=== PATIENT | female | born 1965 | race Caucasian/White ===

== ENCOUNTER → 2017-08-24 12:05 | Outpatient (CLI) | payer MEDICARE, SELFPAY ==
[2017-08-24 12:35] LABS: ALB/GLOB Ratio 1.1 RATIO (0.9-2.4); AST(SGOT) 13 U/L (15-37); Alanine Aminotransfer ALT/SGPT 36 U/L (13-56); Albumin, Serum 3.5 g/dL (3.2-5.0); Alkaline Phosphatase 101 U/L (45-117); Anion Gap 8 (5-15); BUN 11 mg/dL (7-18); BUN/Creat Ratio 10.9 RATIO (10-20); Calcium,Total 9.2 mg/dL (8.5-10.1); Chloride 110 mmol/L (98-107); Creatinine, Serum 1.01 mg/dL (0.55-1.02); EST Glomerular Filtration Rate 61 mL/min (>60); Est Glom Filt Rate - Afr Amer 74 mL/min (>60); Globulin 3.3 g/dL (2.2-4.2); Glucose 109 mg/dL (74-106); Potassium 4.8 mmol/L (3.5-5.1); Protein, Total 6.8 g/dL (6.4-8.2); Sodium Level 140 mmol/L (136-145)
== END ==
PROVIDERS: Visit Provider Registered Nurse
DX: Z79.899 Other long term (current) drug therapy (principal)
CPT/HCPCS: 80053; 80178; 84443

== ENCOUNTER → 2017-10-29 10:19 | Outpatient (CLI) | payer MEDICARE, SELFPAY | PROVIDERS: Visit Provider Registered Nurse | DX: F31.31 Bipolar disorder, current episode depressed, mild (principal); Z79.899 Other long term (current) drug therapy | CPT/HCPCS: 36415; 80178 ==

== ENCOUNTER → 2017-12-19 12:58 | Outpatient (CLI) | payer MEDICARE, SELFPAY ==
--- NOTE | 2017-12-19 13:00 | RAD_ITS ---
STUDY: SWALLOWING STUDY REASON FOR EXAM: Female, 52 years old. Dysphagia. TECHNIQUE: The examination was performed with Speech Pathology in attendance. Under fluoroscopic observation, the patient ingested thin barium, thick barium, barium pudding, and barium coated cracker. FLUOROSCOPY TIME: 0:59 minutes/seconds. 912 spot images were obtained. RADIOLOGIST INVOLVEMENT: Radiologist was present and providing direct supervision. COMPARISON: None. FINDINGS: The following was observed during swallowing of the various mixtures of barium: Thin Barium: There was no evidence of aspiration or laryngeal penetration. Barium Pudding: There was no evidence of aspiration or laryngeal penetration. Barium Coated Cracker: There was no evidence of aspiration or laryngeal penetration. RAD/Swallowing Function w/Video IMPRESSION: Normal tailored barium swallow study. No evidence of increased risk for aspiration. The swallow study findings were discussed with the patient by the speech pathologist at the conclusion of the examination. Please see speech pathology report for more information and recommendations. Electronically Signed: Hadley Duff MD at 13:47 EDT Tel [phone], Service support ,
--- NOTE | 2017-12-19 13:30 | SP.MBSS_ITS ---
PRIMARY / SECONDARY DIAGNOSIS: dysphagia (R13.10) REFERRING PHYSICIAN: Dr. Adelso Devlin MD CURRENT DIET: regular textures, thin liquids DENTITION: WFL MENTAL STATUS: WNL RESPIRATORY STATUS: O2 via room air PREVIOUS MODIFIED BARIUM SWALLOW STUDY: REASON FOR REFERRAL: Patient is a 52 year old female referred for a modified barium swallow (MBS) study to objectively assess the Patients oropharyngeal swallow function under fluoroscopy secondary to reported bilateral thyroid nodules in addition to globus sensation post deglutition. 08/10/2017 thyroid ultrasound revealed 3 mm right lobe nodule left lobe, 2 small 4-7 mm nodules in the left side of the isthmus is a 1.6 x 0.9 x 1.37 m nodule. MEDICAL HISTORY: Multiple thyroid nodules, esophageal dysphagia, gastroesophageal reflux disease , anxiety, depression, sleep apnea, hypertension, status post section, hysterectomy, laparoscopic cholecystectomy, parathyroidectomy, terminal carman history of tobacco abuse (pack per day for 30 years) STUDY FINDINGS: Patient participated in a Modified Barium Swallow (MBS) study on 12/19/2017. Dr. Duff was the radiologist present for this evaluation. This study was recorded in the lateral view and images were sent to PACs for storage. The following consistencies were presented to this patient for analysis of oropharyngeal swallow function: thin liquids, pudding, and a regular textured, Suki Doone cookie. Results of the MBS are as follows: PENETRATION / ASPIRATION SCALE (RIVERA): 1 = does not enter airway 2 = enters airway/above vocal folds/ejected 3 = enters airway/above vocal folds/not ejected 4 = enters airway/contacts vocal folds/ejected 5 = enters airway/contacts vocal folds/not ejected 6 = enters airway/below vocal folds/ejected 7 = enters airway/below vocal folds/not ejected despite effort 8 = enters airway/below vocal folds/no effort PENETRATION / ASPIRATION SCALE (SCORE): Thin liquids via cup (single sip): 1 Thin liquids via cup (single sip): 2 Thin liquids via cup (single sip): 1 Thin liquids via cup (single sip): 1 Thin liquids via straw (single sip): 1 Thin liquids via straw (sequential swallows): 1 Pudding via spoon: 1 Regular textured cookie: 1 IMPRESSION: DIAGNOSIS: mild oropharyngeal dysphagia (R13.12) ORAL PHASE CHARACTERIZED BY: LABIAL SEAL: no labial escape TONGUE CONTROL DURING BOLUS MANIPULATION: cohesive bolus between tongue to palatal seal BOLUS PREPARATION / MASTICATION: timely and efficient chewing and mashing BOLUS TRANSPORT / LINGUAL MOTION: brisk tongue motion ORAL RESIDUE: complete oral clearance PHARYNGEAL PHASE CHARACTERIZED BY: INITIATION OF PHARYNGEAL SWALLOW: bolus head at posterior angle of ramus at first hyoid excursion SOFT PALATE ELEVATION: no bolus between soft palate and pharyngeal wall LARYNGEAL ELEVATION: partial superior movement of thyroid cartilage/partial approximation of arytenoids cartilage to epiglottic petiole ANTERIOR HYOID EXCURSION: complete anterior movement EPIGLOTTIC MOVEMENT: complete epiglottic inversion LARYNGEAL VESTIBULE CLOSURE AT HEIGHT OF SWALLOW: complete laryngeal vestibule closure with no air/contrast in laryngeal vestibule PHARYNGEAL STRIPPING WAVE: pharyngeal stripping wave present / complete PHARYNGOESOPHAGEAL SEGMENT OPENING: complete distension and complete duration with no obstruction of flow TONGUE BASE RETRACTION: trace column of contrast between tongue base and posterior pharyngeal wall PHARYNGEAL RESIDUE: trace residue within or on pharyngeal structures ESOPHAGEAL PHASE CHARACTERIZED BY: ESOPHAGEAL BOLUS CLEARANCE IN THE UPRIGHT POSITION: complete clearance; esophageal coating DIET TEXTURE RECOMMENDATIONS: Will recommend a regular textured, thin liquid diet. COMPENSATORY STRATEGIES RECOMMENDED: Reduced bolus volume, seated upright at 90 degrees during PO intake INTERPRETATION OF RESULTS: The Patient presents with mastication and deglutition abilities found to be grossly within functional limits. No aspiration appreciated throughout consistencies trialed with slight transient penetration during thin liquid via cup on one occasion; results within normal limitations. RECOMMENDATIONS: Patient able to comprehend and express recommended intake precautions detailed above with sufficient detail to suggest high likelihood of compliance. Provided brief overview of signs and symptoms of aspiration, with recommendations for the Patient to further discuss symptoms with PCP. No further skilled speech- language services warranted at this time targeting dysphagia. ADDITIONAL COMMENTS/RECOMMENDATIONS: Results and recommendations were discussed with the Patient immediately following MBS completion, with the Patient verbalizing understanding and agreement with all recommendations and education provided. IMAGE COUNT: 912 G-CODES: SWALLOWING G8996 Current Status: SWALLOWING G8997 Goal Status: SWALLOWING G8998 Discharge Status:
== END ==
PROVIDERS: Family Provider Family Medicine; PCP Family Medicine; Visit Provider Surgery
DX: R13.10 Dysphagia, unspecified (principal)
CPT/HCPCS: 74230; 92611; G8996; G8997; G8998

== ENCOUNTER 2018-02-20 14:36 | Emergency (ER) | payer MEDICARE, SELFPAY ==
[2018-02-20 14:37] VITALS: BP 169/78; PULSE 91; RESP 24; TEMP 35.9; O2SAT 97; BMI 47.2
--- NOTE | 2018-02-20 15:07 | ED.VISSUMM ---
- ER Visit Summary Date of Service: 02/20/18 Chief Complaint: Short of breath, leg swelling History of Present Illness: The patient is a 52 F who presents with shortness of breath on exertion for the past 1 week. She noted swelling to her legs left more so than right over the past 4 days. She does report skin discoloration over the backs of her legs. She states they feel somewhat numb. She denies pain. She does not have chest pain. Patient is not a smoker but does take estrogen supplements. She denies personal or family history of blood clots. Physical Examination: Blood pressure is 169/78, temperature 96.7, heart rate 91, respiratory rate 24, pulse ox 97% on room air. Patient is an obese female sitting upright in bed. She is speaking full sentences. Head and neck examination is unremarkable. Heart is regular rate and rhythm. Lung sounds are clear. Abdomen is soft and nontender. Lower extremity examination reveals 2+ edema to the the lower legs. She has mild skin mottling on her calf right more so than left. She has mild erythema to the lower portion of her left leg. She has strong distal pulses. Legs are warm to the touch. Test Results: EKG is sinus at 76 with no sign of acute ischemia. Portable chest x-ray shows scattered calcific granulomas. CBC is normal. Chemistry studies reveal BUN of 19 and a creatinine 1.57. I do not have any prior values to compare to. Troponin is negative. BNP is normal. D-dimer 0.59. Venous ultrasound of the legs reveals no evidence of DVT. CT of the chest is normal. Emergency Department Course and Treatment: Patient did receive IV fluids secondary to her elevation in creatinine and requiring CTA of the chest. On repeat evaluation patient has been sitting with her legs elevated. On exam her legs are normal in coloration. I encouraged her to use compression socks or wraps when she is going to be on her feet and try to elevate her legs. She is to follow with her primary care physician. Treatment Plan: [] Disposition: Discharge Impression: Dyspnea, uncertain etiology This note was generated with [employer] software. It may contain incorrect words, spelling, and punctuation that were not noted in review of the chart prior to signing ED Disposition - Plan for ED Patient: Chief Complaint: Shortness of Breath Referrals: Sharon Wall [Primary Care Provider] -
[2018-02-20 15:21] VITALS: O2SAT 96
[2018-02-20] MEDS: 0.9% Normal Saline 1,000 ML 150 ML IV (15:23)
[2018-02-20 15:36] LABS: Absolute Lymphocyte Count 2.55 X10^3/ul (0.83-4.51); Absolute Neutrophil Count 3.4 X10^3/uL (2.0-7.7); Basophil# 0.04 X10^3/uL; Basophil% 0.6 % (0-1); Eosinophil# 0.21 X10^3/uL; Eosinophils% 3.1 % (0-5); Hemoglobin 14.1 g/dl (12.0-15.0); Lymphocyte # 2.55 X10^3/ul (4.0); Lymphocyte % 37.5 % (19-41); Mean Corpuscular Hgb 27.4 pg (27.0-32.0); Mean Corpuscular Volume 85.4 fL (81-99); Mean Platelet Vol. 10.7 fl (6.2-12.0); Monocyte% 8.8 % (0-10); Neutrophil # 3.38 X10^3/uL (2.7-7.7); Neutrophil % 49.7 % (47-70); Platelet Count 235 K/mm3 (150-450); RBC Distribution Width CV 13.7 % (11.6-14.6); RBC Distribution Width SD 42.6 fl (35.1-43.9); Red Blood Count 5.15 M/mm3 (4.2-5.4); White Blood Count 6.8 K/mm3 (4.4-11.0)
[2018-02-20 15:44] LABS: Anion Gap 10 (5-15); BUN 19 mg/dL (7-18); BUN/Creat Ratio 12.1 RATIO (10-20); Calcium,Total 9.6 mg/dL (8.5-10.1); Chloride 110 mmol/L (98-107); Creatinine, Serum 1.57 mg/dL (0.55-1.02); EST Glomerular Filtration Rate 37 mL/min (>60); Est Glom Filt Rate - Afr Amer 44 mL/min (>60); Estimated Creatinine Clearance 33.15 ml/min; Glucose 98 mg/dL (74-106); Potassium 4.4 mmol/L (3.5-5.1); Sodium Level 141 mmol/L (136-145)
[2018-02-20 15:48] LABS: POSITIVE COUNT NO; POSITIVE DIFFERENTIAL NO; POSITIVE MORPHOLOGY NO
[2018-02-20 16:01] LABS: International Normalized Ratio 0.9; Prothrombin Time (Protime)PT. 12.6 SECONDS (11.7-14.9)
[2018-02-20 16:02] LABS: Partial Thromboplast Time 30.6 Seconds (24.1-36.2)
[2018-02-20 16:27] LABS: D-Dimer Quantitative (DVT/PE) 0.59 FEU/ug/m (0.27-0.49)
[2018-02-20 16:53] VITALS: BP 153/71; PULSE 68; RESP 15; O2SAT 99
[2018-02-20 17:49] LABS: BNP,B-Type NATRIURETIC PEPTIDE 10.4 pg/mL (0-100)
--- NOTE | 2018-02-20 18:14 | ED.DEP ---
ED Disposition - Plan for ED Patient: Disposition: Home or Assisted Living Chief Complaint: Shortness of Breath Instructions: ED Dyspnea Shortness of Breath, ED Leg Swelling Bilateral Referrals: Sharon Wall [Primary Care Provider] - 1 Week
[2018-02-20 18:19] VITALS: BP 141/76; PULSE 65; RESP 17; O2SAT 97
== END 2018-02-20 18:19 | disposition home or self-care (01) ==
PROVIDERS: Emergency Provider Emergency Medicine; Family Provider Family Medicine; PCP Family Medicine
DX: R06.00 Dyspnea, unspecified (principal); E66.9 Obesity, unspecified; K21.9 Gastro-esophageal reflux disease without esophagitis; I10 Essential (primary) hypertension; F41.9 Anxiety disorder, unspecified; F32.9 Major depressive disorder, single episode, unspecified; Z79.899 Other long term (current) drug therapy
CPT/HCPCS: 71045; 71275; 80048; 83880; 84484; 85025; 85379; 85610; 85730; 93005; 93970; 96360; 96361; 99285; J7030; J7040; Q9967; A4216

== ENCOUNTER 2018-09-24 14:24 | Emergency (ER) | payer MEDICARE, SELFPAY ==
[2018-09-24 14:25] VITALS: BP 170/130; PULSE 106; RESP 20; TEMP 36.3; O2SAT 98; BMI 51.2
--- NOTE | 2018-09-24 14:47 | CT_ITS ---
STUDY: CT ABDOMEN AND PELVIS WITH CONTRAST REASON FOR EXAM: Female, 53 years old. Right lower quadrant pain radiating to the right flank RADIATION DOSAGE (If Supplied By Facility): CTDIvol = ( 17.07 ) mGy, DLP = ( 2075.09 ) mGycm TECHNIQUE: Transaxial images were obtained from the dome of the diaphragm to the symphysis pubis without oral contrast. 100cc IV Isovue 300 was administered. Sagittal and coronal images were reconstructed. Individualized dose optimization techniques were used for this CT. COMPARISON: None. FINDINGS: The visualized lung bases are unremarkable. The visualized portions of the heart are within normal limits. There is decreased attenuation of the liver consistent with steatosis. There are surgical clips in the gallbladder fossa consistent with a prior cholecystectomy. Normal spleen. Normal pancreas. Normal bilateral adrenal glands. Under rotation and ascension of the right kidney (normal variant). Normal left kidney. Normal visualized stomach. Normal small intestine. Normal colon. The appendix is visualized and appears normal. Normal abdominal aorta. Normal inferior vena cava. Normal retroperitoneum. Normal urinary bladder. There is absence of the uterus consistent with a prior hysterectomy. Normal abdominal wall. There are diffuse degenerative changes of the visualized lumbar spine. CT/Abdomen/Pelvis W IV Cont ONLY IMPRESSION: 1. Normal CT appearance of the appendix. 2. No hydronephrosis or urinary tract calcifications. 3. Hepatic steatosis. Cholecystectomy. Electronically Signed: Kyel Brothers MD at 16:39 EDT , Service support ,
--- NOTE | 2018-09-24 14:51 | ED.DCSUM_ITS ---
History of Present Illness Chief Complaint: Abd Pain Informant: Patient Onset: Weeks - 1 Context: Gradual Onset Timing: Continuous Quality: ache Location: R abd Current Severity: Moderate Maximum Severity: Moderate Worsened by: moving, lying on R side Relieved by: remaining still Associated Symptoms: nausea, diarrhea, urinary frequency, subj fevers Narrative: Patient states the pain started in her right abdomen, then moved around to her right low back, is worse now with movement and lying on that side, and she states the abdominal discomfort is gone. She has had gold slimy diarrhea without blood or melena. - Past Medical History (1) Bipolar 1 disorder Status: Chronic (2) Esophageal dysphagia Status: Chronic (3) Multiple thyroid nodules Status: Chronic Past Medical History - Allergies and Home Meds Allergies/Adverse Reactions: Allergies nitrofurantoin [From Macrodantin] Allergy (Mild, Verified 09/24/18 14:28) rash sulfamethoxazole [From Septra] Allergy (Mild, Verified 09/24/18 14:28) rash trimethoprim [From Septra] Allergy (Mild, Verified 09/24/18 14:28) rash Primary Care Physician: Sharon Wall [Primary Care Provider] - Surgical History: cholecystectomy, - - Lives: Spouse/ Significant Other Smoking Status: Current every day smoker Review of Systems General: Reports: Fever, Subjective. Denies: Chills, Sweats Eyes: Denies: Visual changes - bilaterally, Diplopia ENT: Denies: Rhinorrhea, Sore throat Cardiovascular: Denies: Chest pain, Palpitations Respiratory: Denies: Dyspnea, Cough, Dyspnea on exertion Gastrointestinal: Reports: Abdominal pain, Nausea, Diarrhea. Denies: Vomiting, Melena, Hematochezia Genitourinary: Reports: Frequency. Denies: Dysuria, Hematuria Musculoskeletal: Reports: Back pain Skin: Denies: Rash, Wounds Neurological: Denies: Headache, Weakness, Numbness Physical Exam Vital Signs/Narrative: Vital Signs Temp Pulse Resp BP Pulse Ox 09/24/18 14:25 97.4 F L 106 H 20 H 170/130 H 98 Inital Vital Signs reviewed: Yes General: Well nourished, Well developed, Obese, No Acute Distress Head: Normocephalic, Atraumatic Eyes: Perrl, EOMI ENT: Moist mucous membranes, No rhinorrhea Neck: Supple, Nontender Cardiovascular: Regular rate, Regular rhythm, No murmurs Respiratory: No distress, CTA bilaterally, Chest nontender Abdomen: Soft, Nondistended, Normal bowel sounds, Tender - R mid abd > RLQ and RUQ. otherwise, nontender.. Negative for: Guarding, Rebound tenderness, Castorena's sign Back: Normal Inspection. Negative for: Nontender - +tender to superficial palpation right upper lumbar paraspinal area. no rash., CVA tenderness, Spinal tenderness Extremities: Nontender, No edema Skin: Normal color, No rash, No Trauma Neurological: Alert, Oriented x3, Cranial nerves II-XII grossly intact, Normal Strength, Normal Sensation Psychological: Normal affect, Normal Mood Diagnostic/Tx/Re-eval Impressions Abdomen/Pelvis CT 09/24/18 14:47 IMPRESSION: 1. Normal CT appearance of the appendix. 2. No hydronephrosis or urinary tract calcifications. 3. Hepatic steatosis. Cholecystectomy. Electronically Signed: Kyle Brothers MD at 16:39 EDT , Service support , 09/24/18 14:47 Abdomen/Pelvis W IV Cont ONLY [CT] Stat Laboratory Results 09/24/18 09/24/18 09/24/18 14:37 15:07 15:07 WBC 8.4 RBC 5.14 Hgb 14.0 Hct 41.5 MCV 80.7 L MCH 27.2 MCHC 33.7 RDW 13.7 RDW Differential 39.1 Plt Count 189 MPV 11.1 Immature Gran % (Auto) 0.500 Neut % (Auto) 67.2 Lymph % (Auto) 24.9 [place] % (Auto) 6.5 Eos % (Auto) 0.7 Baso % (Auto) 0.2 Absolute Neuts (auto) 5.6 Absolute Lymphs (auto) 2.08 Total Counted Not Reportable Sodium 142 Potassium 3.8 Chloride 108 H Carbon Dioxide 27.0 Anion Gap 7 BUN 11 Creatinine 1.04 H Estim Creat Clear Calc 49.48 Est GFR (MDRD) Af Amer 71 Est GFR (MDRD) Non-Af 59 L BUN/Creatinine Ratio 10.6 Glucose 91 Calcium 9.2 Total Bilirubin 0.50 AST 34 ALT 66 H Alkaline Phosphatase 111 Total Protein 7.3 Albumin 3.8 Globulin 3.5 Albumin/Globulin Ratio 1.1 Lipase 109 Urine Color Yellow Urine Clarity Clear Urine pH 7.0 Ur Specific [place] 1.005 Urine Protein Negative Urine Glucose (UA) Normal Urine Ketones Negative Urine Occult Blood Negative Urine Nitrite Negative Urine Bilirubin Negative Urine Urobilinogen Normal Ur Leukocyte Esterase Negative Urine RBC 0 SEEN Urine WBC 0 SEEN Ur Squamous Epith Cells 0-5 SEEN Urine Bacteria 0 SEEN Urine Mucus 0 SEEN - Medical Decision Making Labs and CT abdomen/pelvis showed no acute abnormalities. Urinalysis unremarkable. She was treated with Toradol and morphine, as well as Zofran and IV fluids. Suspect GI etiology of her symptoms. Will give her a prescription for Bentyl to use as needed for discomfort, and if the diarrhea persists she should follow-up with her doctor, she has been on no antibiotics or had recent travel or eating any uncooked meats to suggest this is bacterial in etiology. She has had no hematochezia. She is comfortable with this plan. ED Disposition - Plan for ED Patient: Disposition: Home or Assisted Living Diagnosis: Right sided abdominal pain, Acute diarrhea Instructions: ED Abdominal Pain Unkn Cause, ED Diarrhea Viral Prescriptions: Dicyclomine HCl [Bentyl] 20 mg PO Q6H PRN #20 cap PRN Reason: abdominal pain Referrals: Sharon Wall [Primary Care Provider] - 3-5 Days if not improving
[2018-09-24 15:08] LABS: Bacteria 0 SEEN /hpf (None Seen); Mucous, Urine 0 SEEN /hpf (<or=2+); Red Blood Cells-Urine 0 SEEN /hpf (0-5); White Blood Cells 0 SEEN /hpf (0-5)
[2018-09-24] MEDS: Ketorolac 30 MG/ML Syringe 15 MG IV (15:09)
[2018-09-24] MEDS: 0.9% Normal Saline 1,000 ML 1000 ML IV (15:09)
[2018-09-24] MEDS: Ondansetron 4 MG/2 ML Vial IV (15:09)
[2018-09-24] MEDS: Morphine 4 MG/ML Syringe IV (15:09)
[2018-09-24 15:10] LABS: Color, Urine Yellow (Yellow); Glucose, Dipstick Normal (Normal); Ketone-Dipstick Negative (Negative); Leukocyte Esterase-Dipstick Negative /ul (Negative); Nitrite-Dipstick Negative (Negative); Occult Blood-Urine Negative /ul (Negative); Protein-Dipstick Negative (Negative); Specific Gravity, Urine 1.005 (1.002-1.030); Urine Bilirubin Dipstick Negative (Negative); Urine Clarity Clear (Clear); Urine Urobilinogen Normal (Normal)
[2018-09-24 15:15] LABS: Absolute Lymphocyte Count 2.08 X10^3/ul (0.83-4.51); Absolute Neutrophil Count 5.6 X10^3/uL (2.0-7.7); Basophil# 0.02 X10^3/uL; Basophil% 0.2 % (0-1); Eosinophil# 0.06 X10^3/uL; Eosinophils% 0.7 % (0-5); Hematocrit 41.5 % (37-47); Lymphocyte # 2.08 X10^3/ul (4.0); Lymphocyte % 24.9 % (19-41); Mean Corp Hgb Conc 33.7 g/gl (32-36); Mean Corpuscular Hgb 27.2 pg (27.0-32.0); Mean Corpuscular Volume 80.7 fL (81-99); Mean Platelet Vol. 11.1 fl (6.2-12.0); Monocyte# 0.54 X10^3/uL; Monocyte% 6.5 % (0-10); Neutrophil # 5.61 X10^3/uL (2.7-7.7); Neutrophil % 67.2 % (47-70); Platelet Count 189 K/mm3 (150-450); RBC Distribution Width CV 13.7 % (11.6-14.6); RBC Distribution Width SD 39.1 fl (35.1-43.9); Red Blood Count 5.14 M/mm3 (4.2-5.4); White Blood Count 8.4 K/mm3 (4.4-11.0)
[2018-09-24 15:17] LABS: Squamous Epithelial Cells - UA 0-5 SEEN /hpf (5-10)
[2018-09-24 15:17] LABS: POSITIVE COUNT NO; POSITIVE DIFFERENTIAL NO; POSITIVE MORPHOLOGY NO
[2018-09-24 15:20] VITALS: BP 159/78; PULSE 89; RESP 16; TEMP 36.4; O2SAT 96
[2018-09-24 15:31] LABS: ALB/GLOB Ratio 1.1 RATIO (0.9-2.4); AST(SGOT) 34 U/L (15-37); Alanine Aminotransfer ALT/SGPT 66 U/L (13-56); Albumin, Serum 3.8 g/dL (3.2-5.0); Alkaline Phosphatase 111 U/L (45-117); Anion Gap 7 (5-15); BUN 11 mg/dL (7-18); BUN/Creat Ratio 10.6 RATIO (10-20); Calcium,Total 9.2 mg/dL (8.5-10.1); Chloride 108 mmol/L (98-107); Creatinine, Serum 1.04 mg/dL (0.55-1.02); EST Glomerular Filtration Rate 59 mL/min (>60); Est Glom Filt Rate - Afr Amer 71 mL/min (>60); Estimated Creatinine Clearance 49.48 ml/min; Globulin 3.5 g/dL (2.2-4.2); Glucose 91 mg/dL (74-106); Lipase 109 U/L (73-393); Potassium 3.8 mmol/L (3.5-5.1); Protein, Total 7.3 g/dL (6.4-8.2); Sodium Level 142 mmol/L (136-145)
[2018-09-24 18:04] VITALS: BP 138/63; PULSE 83; RESP 18; O2SAT 97
[2018-09-24] MEDS: Dicyclomine 10 MG Capsule 20 MG PO (18:04)
== END 2018-09-24 18:11 | disposition home or self-care (01) ==
PROVIDERS: Emergency Provider Emergency Medicine; Family Provider Family Medicine; PCP Family Medicine
DX: R10.9 Unspecified abdominal pain (principal); R19.7 Diarrhea, unspecified; F17.200 Nicotine dependence, unspecified, uncomplicated; E66.9 Obesity, unspecified; F31.9 Bipolar disorder, unspecified; Z79.899 Other long term (current) drug therapy
CPT/HCPCS: 74177; 80053; 81001; 83690; 85025; 96361; 96374; 96375; 99284; J7030; Q9967; A4216; J2405

== ENCOUNTER → 2020-01-16 | Outpatient (CLI) | payer MEDICARE, SELFPAY ==
[2020-01-18 16:09] LABS: Endomysial Antibody IgA Negative (Negative)
[2020-01-18 20:09] LABS: Immunoglobulin A 171 mg/dL (87-352); t-Transglutaminase IgA <2 U/mL (0-3)
== END | disposition home or self-care (01) ==
PROVIDERS: PCP Family Medicine; Referring Provider Internal Medicine Gastroenterology; Visit Provider Internal Medicine Gastroenterology
DX: R19.7 Diarrhea, unspecified (principal)
CPT/HCPCS: 36415; 82784; 83516; 86140; 86255

== ENCOUNTER → 2022-02-10 | Outpatient (CLI) | payer MEDICARE, SELFPAY ==
[2022-02-10 18:28] LABS: CRP < 2.90 mg/L (0.0-3.0)
[2022-02-12 15:08] LABS: Endomysial Antibody IgA Negative (Negative)
[2022-02-13 14:24] LABS: Immunoglobulin A 161 mg/dL (87-352); t-Transglutaminase IgA <2 U/mL (0-3)
== END | disposition home or self-care (01) ==
PROVIDERS: PCP Family Medicine; Referring Provider Internal Medicine Gastroenterology; Visit Provider Internal Medicine Gastroenterology
DX: R19.7 Diarrhea, unspecified (principal)
CPT/HCPCS: 36415; 82784; 83516; 86140; 86255

== ENCOUNTER → 2022-07-07 | Outpatient (CLI) | payer MEDICARE, SELFPAY ==
[2022-07-09 17:17] LABS: Fats, Neutral Increased (.); Fats, Total Increased (.)
== END | disposition home or self-care (01) ==
PROVIDERS: PCP Family Medicine; Referring Provider Internal Medicine Gastroenterology; Visit Provider Internal Medicine Gastroenterology
DX: R19.7 Diarrhea, unspecified (principal)
CPT/HCPCS: 82705

== ENCOUNTER → 2022-07-26 | Outpatient (CLI) | payer MEDICARE, SELFPAY ==
[2022-07-30 21:23] LABS: Pancreatic Elastase, Fecal 230 (>200)
== END | disposition home or self-care (01) ==
PROVIDERS: PCP Family Medicine; Referring Provider Internal Medicine Gastroenterology; Visit Provider Internal Medicine Gastroenterology
DX: R19.5 Other fecal abnormalities (principal); K58.0 Irritable bowel syndrome with diarrhea
CPT/HCPCS: 82653